=== PATIENT | male | born 1950 | race Caucasian/White ===

== ENCOUNTER 2023-04-06 18:26 | Inpatient (IN) | payer MEDICARE ==
[2023-04-06 19:03] LABS: #Basophils 0.1 10x3/uL (0.0-0.2); #Eosinphils 0.2 10x3/uL (0.0-0.5); #Monocytes 0.9 10x3/uL (0.0-1.1); #Neutrophils 4.7 10x3/uL (1.5-8.4); %Basophils 0.5 % (0.0-2.0); %Eosinophils 1.8 % (0.0-6.0); %Lymphocytes 38.1 % (18.0-47.0); %Monocytes 9.9 % (0.0-10.0); %Neutrophils 49.5 % (40.0-75.0); Hematocrit 45.7 % (38.8-50.0); Hemoglobin 15.6 g/dL (13.5-17.5); Mean Corpuscular HGB CONC 34.1 g/dL (32.0-36.0); Mean Corpuscular Hemoglobin 32.4 pg (27.0-33.0); Mean Corpuscular Volume 94.8 fl (81.2-95.1); Mean Platelet Volume 10.1 fl (7.4-10.4); Platelet Count 281 10x3/uL (150-450); Red Blood Cell (RBC) Count 4.82 10x6/uL (4.32-5.72); White Blood Cell (WBC) Count 9.4 10x3/uL (3.5-10.5)
[2023-04-06] MEDS ORDERED: Aspirin Chewable 81 MG TAB ONE (19:11)
[2023-04-06 19:17] LABS: PTT 32.8 sec (22.0-33.0); Prothrombin Time 11.1 sec (9.5-12.1)
[2023-04-06 19:19] LABS: ALT (SGPT) 25 U/L (8-55); AST (SGOT) 56 U/L (5-34); Albumin 3.9 g/dL (3.4-4.8); Alkaline Phosphatase 63 U/L (40-110); Anion Gap 16 mmol/L (10-20); BUN (Urea Nitrogen) 21 mg/dL (8.4-25.7); CK (CPK) 165 U/L (30-200); Calc. Creatinine Clearance 0 mL/min (70-130); Calcium 9.3 mg/dL (7.8-10.44); Carbon Dioxide 25 mmol/L (23-31); Chloride 101 mmol/L (98-107); Estimated GFR 50; Globulin 3.3 g/dL (2.4-3.5); Glucose 106 mg/dL (83-110); Magnesium 1.8 mg/dL (1.6-2.6); Potassium 4.2 mmol/L (3.5-5.1); Protein, Total 7.2 g/dL (5.8-8.1); Sodium 138 mmol/L (136-145)
[2023-04-06 19:26] LABS: Troponin I 5.823 ng/mL (< 0.028)
[2023-04-06] MEDS ORDERED: Ondansetron PF 4 MG/2 ML Vial IVP PRN (20:00)
[2023-04-06] MEDS ORDERED: Guaifenesin DM 100-10/5 ML UDCUP PO PRN (20:00)
[2023-04-06] MEDS ORDERED: Calcium Carbonate 500 MG ChewTAB PO PRN (20:00)
[2023-04-06] MEDS ORDERED: HYDROcodone/Acetaminophen 5/325 mg Tablet PO PRN (20:00)
[2023-04-06] MEDS ORDERED: Zolpidem Tartrate 5 MG TAB PO PRN (20:00)
[2023-04-06] MEDS ORDERED: Senokot S 8.6-50 MG TAB PO PRN (20:00)
[2023-04-06] MEDS ORDERED: Acetaminophen 325 MG TAB PO PRN (20:00)
[2023-04-06] MEDS ORDERED: Nitroglycerin 0.4 MG TAB (25 Tab Bottle) SL PRN (20:01)
[2023-04-06] MEDS ORDERED: Furosemide 20 MG/2 ML VIAL SLOW IVP SCH (20:15)
[2023-04-06] MEDS ORDERED: Dextrose 50% Abboject 50 ML SYRINGE SLOW IVP PRN (20:19)
[2023-04-06] MEDS ORDERED: HumaLOG 300 UNITS/3 ML VIAL SC PRN (20:19)
[2023-04-06] MEDS ORDERED: Dextrose 5% in Water 1,000 ML IV PRN (20:19)
[2023-04-06] MEDS ORDERED: Glucagon 1 MG/ML KIT IM PRN (20:19)
[2023-04-06] MEDS ORDERED: Furosemide 40 MG/4 ML VIAL ONE (20:26)
[2023-04-06] MEDS ORDERED: Enoxaparin 120 MG/0.8 ML SYRINGE SC SCH (21:00)
[2023-04-06] MEDS ORDERED: Nitroglycerin 2% Ointment 1 INCH/1 GM Packet TOP SCH (21:15)
[2023-04-06] MEDS: Atorvastatin Calcium 40 MG TAB PO SCH (21:58)
[2023-04-06] MEDS: Metoprolol Tartrate 25 MG TAB PO SCH (21:58)
[2023-04-06] MEDS: Famotidine/PF 20 mg/2ml Vial SLOW IVP SCH (21:59)
[2023-04-06 22:07] LABS: Troponin I 5.624 ng/mL (< 0.028)
[2023-04-07 03:43] LABS: #Basophils 0.1 10x3/uL (0.0-0.2); #Eosinphils 0.2 10x3/uL (0.0-0.5); #Monocytes 1.1 10x3/uL (0.0-1.1); #Neutrophils 4.4 10x3/uL (1.5-8.4); %Basophils 0.7 % (0.0-2.0); %Eosinophils 2.4 % (0.0-6.0); %Lymphocytes 31.6 % (18.0-47.0); %Monocytes 12.9 % (0.0-10.0); %Neutrophils 52.2 % (40.0-75.0); Hematocrit 44.5 % (38.8-50.0); Hemoglobin 15.1 g/dL (13.5-17.5); Mean Corpuscular HGB CONC 33.9 g/dL (32.0-36.0); Mean Corpuscular Volume 94.3 fl (81.2-95.1); Mean Platelet Volume 9.9 fl (7.4-10.4); Platelet Count 270 10x3/uL (150-450); RBC Distribution Width 15.1 % (11.5-14.5); Red Blood Cell (RBC) Count 4.72 10x6/uL (4.32-5.72); White Blood Cell (WBC) Count 8.4 10x3/uL (3.5-10.5)
[2023-04-07 03:47] LABS: Anion Gap 16 mmol/L (10-20); BUN (Urea Nitrogen) 23 mg/dL (8.4-25.7); Calc. Creatinine Clearance 63 mL/min (70-130); Calcium 9.4 mg/dL (7.8-10.44); Carbon Dioxide 26 mmol/L (23-31); Cardiac Risk 2.5 (Less than 4.5); Chloride 101 mmol/L (98-107); Cholesterol 106 mg/dl (< 200 Desired); Estimated GFR 46; Glucose 117 mg/dL (83-110); HDL Cholesterol 42 mg/dL (>60 Neg Risk); LDL Cholesterol, Calculated 48 mg/dL; Potassium 3.8 mmol/L (3.5-5.1); Sodium 139 mmol/L (136-145); Triglycerides 80 mg/dL (Less than 150)
[2023-04-07] MEDS ORDERED: Lisinopril 5 MG TAB PO SCH ×2 (09:00→11:00)
[2023-04-07] MEDS: Aspirin 81 mg Enteric Coated Tablet PO SCH (09:27)
[2023-04-07] MEDS: Metoprolol Tartrate 25 MG TAB PO SCH ×2 (09:27→10:43)
[2023-04-07] MEDS: Famotidine/PF 20 mg/2ml Vial SLOW IVP SCH ×2 (09:28→20:44)
[2023-04-07] MEDS ORDERED: Lisinopril 10 MG TAB PO SCH (11:00)
[2023-04-07] MEDS: Enoxaparin 120 MG/0.8 ML SYRINGE SC SCH ×2 (11:50→20:42)
[2023-04-07] MEDS: Furosemide 20 MG/2 ML VIAL SLOW IVP SCH (13:13)
[2023-04-07] MEDS ORDERED: Communication Order-Pharmacy FS SCH (18:30)
[2023-04-07] MEDS: Atorvastatin Calcium 40 MG TAB PO SCH (20:39)
[2023-04-07] MEDS: Sodium Chloride 0.9% 1,000 ML IV SCH (20:42)
[2023-04-08 04:37] LABS: Troponin I 4.967 ng/mL (< 0.028)
[2023-04-08] MEDS: Sodium Chloride 0.9% 1,000 ML IV SCH ×3 (06:14→19:55)
[2023-04-08] MEDS ORDERED: Hydrochlorothiazide 25 MG TAB PO SCH (09:00)
[2023-04-08] MEDS: CO Q-10 CAPSULE 50 MG PO SCH (09:00)
[2023-04-08] MEDS ORDERED: PRASTERONE 50 MG PO SCH (09:00)
[2023-04-08] MEDS ORDERED: TICAGRELOR 90 MG TABLET PO SCH (09:02)
[2023-04-08] MEDS: Allopurinol 300 MG TAB PO SCH (09:04)
[2023-04-08] MEDS: Famotidine/PF 20 mg/2ml Vial SLOW IVP SCH ×2 (09:04→22:25)
[2023-04-08] MEDS: Multivitamin W/ Minerals 1 TAB PO SCH (09:06)
[2023-04-08] MEDS: Gemfibrozil 600 MG TAB PO SCH (09:06)
[2023-04-08] MEDS: Tamsulosin HCl 0.4 MG CAP PO SCH (09:06)
[2023-04-08] MEDS: Cholecalciferol 1,000 UNITS (25 MCG) TAB PO SCH (09:07)
[2023-04-08] MEDS: Anastrozole 1 MG TAB PO SCH (09:07)
[2023-04-08] MEDS: Loratadine 10 MG TAB PO SCH (09:12)
[2023-04-08] MEDS: Lisinopril 10 MG TAB PO SCH (09:13)
[2023-04-08] MEDS: Furosemide 20 MG/2 ML VIAL SLOW IVP SCH (09:23)
[2023-04-08] MEDS: Pioglitazone HCl 15 MG TAB PO SCH (09:25)
[2023-04-08] MEDS: Aspirin 81 mg Enteric Coated Tablet PO SCH (09:25)
[2023-04-08] MEDS ORDERED: Acetylcysteine 800 MG/4 ML VIAL PO SCH (11:30)
[2023-04-08] MEDS ORDERED: Iopamidol 300 61% 100 ML VIAL FS ONE (12:34)
[2023-04-08] MEDS ORDERED: Nitroglycerin 50 MG/250 ML BOT 250 ML ONE (13:07)
[2023-04-08] MEDS ORDERED: Lidocaine 1% (PF) 30 ML VIAL ONE (13:07)
[2023-04-08] MEDS ORDERED: Heparin 10,000 UNITS/ 10 ML VIAL ONE ×2 (13:08→14:53)
[2023-04-08] MEDS ORDERED: Adenosine 6 MG/2 ML VIAL ONE (13:08)
[2023-04-08] MEDS ORDERED: fentaNYL 50 mcg/mL 1 mL Vial ONE (13:08)
[2023-04-08] MEDS ORDERED: Midazolam HCl 2 mg/2 ml Vial ONE ×3 (13:08→16:46)
[2023-04-08] MEDS ORDERED: PHENYLEPHRINE-NS 100 MCG/ML 10 ML SYRINGE ONE (13:59)
[2023-04-08] MEDS ORDERED: Atropine Sulfate 1 mg/1 ml Vial ONE ×2 (13:59→14:53)
[2023-04-08] MEDS ORDERED: Ondansetron PF 4 MG/2 ML Vial ONE (15:30)
[2023-04-08] MEDS ORDERED: Morphine 2 MG/ML VIAL SLOW IVP PRN (17:52)
[2023-04-08] MEDS ORDERED: Mag-Al 1200 mg/1200 mg/30 ML UDCUP PO PRN (17:52)
[2023-04-08] MEDS ORDERED: traMADol HCl 50 MG TAB PO PRN (17:52)
[2023-04-08] MEDS ORDERED: Zolpidem Tartrate 5 MG TAB PO PRN (17:52)
[2023-04-08] MEDS ORDERED: Milk Of Magnesia 30 ML UDCUP PO PRN (17:52)
[2023-04-08] MEDS ORDERED: ADMIXTURE FEE FS SCH ×2 (19:45→20:00)
[2023-04-08] MEDS ORDERED: [UNRECOGNIZED DRUG - OTHER] FS SCH (19:45)
[2023-04-08] MEDS ORDERED: Sodium Chloride 0.9% 500 ML IV SCH (19:45)
[2023-04-08] MEDS ORDERED: DEXTROSE FS SCH ×2 (19:45→20:00)
[2023-04-08] MEDS ORDERED: Heparin 10,000 UNITS/ 10 ML VIAL SLOW IVP SCH (19:45)
[2023-04-08] MEDS ORDERED: Heparin 25,000 units/D5W 500 ML IV SCH (19:45)
[2023-04-08] MEDS ORDERED: HEPARIN FS SCH ×2 (19:45→20:00)
[2023-04-08] MEDS ORDERED: WATER FS SCH (20:00)
[2023-04-08 20:37] LABS: #Monocytes 1.4 10x3/uL (0.0-1.1); #Neutrophils 8.9 10x3/uL (1.5-8.4); %Basophils 0.3 % (0.0-2.0); %Eosinophils 0.3 % (0.0-6.0); %Monocytes 11.8 % (0.0-10.0); %Neutrophils 76.2 % (40.0-75.0); Hematocrit 43.8 % (38.8-50.0); Hemoglobin 15.1 g/dL (13.5-17.5); Mean Corpuscular HGB CONC 34.5 g/dL (32.0-36.0); Mean Corpuscular Hemoglobin 32.7 pg (27.0-33.0); Mean Corpuscular Volume 94.8 fl (81.2-95.1); Mean Platelet Volume 10.2 fl (7.4-10.4); Platelet Count 258 10x3/uL (150-450); RBC Distribution Width 14.6 % (11.5-14.5); Red Blood Cell (RBC) Count 4.62 10x6/uL (4.32-5.72); White Blood Cell (WBC) Count 11.7 10x3/uL (3.5-10.5)
[2023-04-08] MEDS ORDERED: Protamine Sulfate 250 MG/25 ML VIAL ONE (21:03)
[2023-04-08] MEDS ORDERED: Atropine Sulfate 1 mg/10 ml Syringe ONE (21:10)
[2023-04-08] MEDS ORDERED: Protamine Sulfate 50 MG/5 ML VIAL SLOW IVP SCH (21:15)
[2023-04-08] MEDS ORDERED: TICAGRELOR 90 MG TABLET ONE (22:23)
[2023-04-08] MEDS: TICAGRELOR 90 MG TABLET PO SCH (22:25)
[2023-04-08] MEDS: Atorvastatin Calcium 40 MG TAB PO SCH (22:26)
[2023-04-08] MEDS ORDERED: Sodium Chloride 0.9% 500 ML IVPB SCH (22:30)
[2023-04-08 22:57] LABS: INR-International Normal Ratio 1.1; PTT 30.9 sec (22.0-33.0); Prothrombin Time 11.8 sec (9.5-12.1)
[2023-04-08 23:04] LABS: ALT (SGPT) 27 U/L (8-55); AST (SGOT) 115 U/L (5-34); Albumin 3.1 g/dL (3.4-4.8); Alkaline Phosphatase 46 U/L (40-110); Anion Gap 16 mmol/L (10-20); BUN (Urea Nitrogen) 24 mg/dL (8.4-25.7); Bilirubin, Total 1.7 mg/dL (0.2-1.2); Calc. Creatinine Clearance 65 mL/min (70-130); Calcium 8.3 mg/dL (7.8-10.44); Carbon Dioxide 22 mmol/L (23-31); Chloride 101 mmol/L (98-107); Estimated GFR 47; Glucose 169 mg/dL (83-110); Magnesium 1.7 mg/dL (1.6-2.6); Potassium 4.2 mmol/L (3.5-5.1); Protein, Total 7.1 g/dL (5.8-8.1); Sodium 135 mmol/L (136-145)
[2023-04-09] MEDS: Sodium Chloride 0.9% 1,000 ML IV SCH ×4 (01:05→15:13)
[2023-04-09 05:46] LABS: Hemoglobin 13.3 g/dL (13.5-17.5); Red Blood Cell (RBC) Count 4.12 10x6/uL (4.32-5.72); White Blood Cell (WBC) Count 8.4 10x3/uL (3.5-10.5)
[2023-04-09 05:47] LABS: #Neutrophils 5.8 10x3/uL (1.5-8.4); %Basophils 0.6 % (0.0-2.0); %Eosinophils 0.6 % (0.0-6.0); %Lymphocytes 16.1 % (18.0-47.0); %Monocytes 13.3 % (0.0-10.0); Hematocrit 38.7 % (38.8-50.0); Mean Corpuscular HGB CONC 34.4 g/dL (32.0-36.0); Mean Corpuscular Hemoglobin 32.3 pg (27.0-33.0); Mean Corpuscular Volume 93.9 fl (81.2-95.1); Mean Platelet Volume 9.9 fl (7.4-10.4); Platelet Count 249 10x3/uL (130-400); RBC Distribution Width 14.6 % (11.5-14.5)
[2023-04-09 05:48] LABS: #Basophils 0.1 10x3/uL (0.0-0.2); #Eosinphils 0.1 10x3/uL (0.0-0.5); #Monocytes 1.1 10x3/uL (0.0-1.1)
[2023-04-09 07:14] LABS: ALT (SGPT) 26 U/L (8-55); Albumin 2.9 g/dL (3.4-4.8); Alkaline Phosphatase 47 U/L (40-110); Anion Gap 14 mmol/L (10-20); BUN (Urea Nitrogen) 27 mg/dL (8.4-25.7); Bilirubin, Total 1.8 mg/dL (0.2-1.2); Calc. Creatinine Clearance 63 mL/min (70-130); Calcium 8.5 mg/dL (7.8-10.44); Carbon Dioxide 22 mmol/L (23-31); Chloride 104 mmol/L (98-107); Estimated GFR 49; Globulin 3.3 g/dL (2.4-3.5); Glucose 119 mg/dL (83-110); Potassium 4.1 mmol/L (3.5-5.1); Protein, Total 6.2 g/dL (5.8-8.1); Sodium 136 mmol/L (136-145)
[2023-04-09 07:21] LABS: AST (SGOT) 107 U/L (5-34)
[2023-04-09] MEDS: Furosemide 20 MG/2 ML VIAL SLOW IVP SCH (08:56)
[2023-04-09] MEDS: Tamsulosin HCl 0.4 MG CAP PO SCH (08:57)
[2023-04-09] MEDS: Multivitamin W/ Minerals 1 TAB PO SCH (08:57)
[2023-04-09] MEDS: Aspirin 81 mg Enteric Coated Tablet PO SCH (08:57)
[2023-04-09] MEDS: Loratadine 10 MG TAB PO SCH (08:57)
[2023-04-09] MEDS: Carvedilol 6.25 MG TAB PO SCH ×2 (08:57→16:51)
[2023-04-09] MEDS: CO Q-10 CAPSULE 50 MG PO SCH (08:57)
[2023-04-09] MEDS: Cholecalciferol 1,000 UNITS (25 MCG) TAB PO SCH (08:57)
[2023-04-09] MEDS ORDERED: Aspirin Chewable 81 MG TAB PO SCH (09:00)
[2023-04-09] MEDS: TICAGRELOR 90 MG TABLET PO SCH ×2 (09:00→21:07)
[2023-04-09] MEDS: Allopurinol 300 MG TAB PO SCH (09:13)
[2023-04-09] MEDS: Gemfibrozil 600 MG TAB PO SCH (09:13)
[2023-04-09] MEDS: Pioglitazone HCl 15 MG TAB PO SCH (09:13)
[2023-04-09] MEDS: Anastrozole 1 MG TAB PO SCH (09:14)
[2023-04-09] MEDS: Lisinopril 10 MG TAB PO SCH (11:03)
[2023-04-09] MEDS: CEFAZOLIN 1 GM in Sodium Chloride 0.9% 100 ML IVPB SCH ×2 (15:13→21:07)
[2023-04-09] MEDS: Atorvastatin Calcium 40 MG TAB PO SCH (21:07)
[2023-04-10] MEDS: CEFAZOLIN 1 GM in Sodium Chloride 0.9% 100 ML IVPB SCH (05:02)
[2023-04-10 05:14] VITALS: TEMP 98.2
[2023-04-10] MEDS: Carvedilol 6.25 MG TAB PO SCH (08:29)
[2023-04-10] MEDS: Allopurinol 300 MG TAB PO SCH (08:30)
[2023-04-10] MEDS: Anastrozole 1 MG TAB PO SCH (08:30)
[2023-04-10] MEDS: Aspirin 81 mg Enteric Coated Tablet PO SCH (08:34)
[2023-04-10] MEDS: Cholecalciferol 1,000 UNITS (25 MCG) TAB PO SCH (08:35)
[2023-04-10] MEDS: Gemfibrozil 600 MG TAB PO SCH (08:36)
[2023-04-10] MEDS: Loratadine 10 MG TAB PO SCH (08:37)
[2023-04-10] MEDS: Multivitamin W/ Minerals 1 TAB PO SCH (08:38)
[2023-04-10] MEDS: Pioglitazone HCl 15 MG TAB PO SCH (08:39)
[2023-04-10] MEDS: CO Q-10 CAPSULE 50 MG PO SCH (08:40)
[2023-04-10] MEDS: Tamsulosin HCl 0.4 MG CAP PO SCH (08:40)
[2023-04-10] MEDS: TICAGRELOR 90 MG TABLET PO SCH (08:40)
[2023-04-10] MEDS ORDERED: Lisinopril 5 MG TAB PO SCH (09:00)
[2023-04-10 11:08] VITALS: BMI 32.2
[2023-04-10 14:58] VITALS: BP 109/53
== END 2023-04-10 16:03 | disposition home or self-care (01) | DRG 215 ==
LOC: CSHERS 18:26 → CSHTELE 20:01 → OBSVTOIN 20:02 → CSHIMCU 04-08 18:11
PROVIDERS: ADMIT Student in an Organized Health Care Education/Training Program; ATTEND Internal Medicine
PROC: 02HA3RZ Insertion of Short-term External Heart Assist System into Heart, Percutaneous Approach (ICD-10-PCS; principal; 2023-04-08)
PROC: 5A0221D Assistance with Cardiac Output using Impeller Pump, Continuous (ICD-10-PCS; 2023-04-08)
PROC: 027035Z Dilation of Coronary Artery, One Artery with Two Drug-eluting Intraluminal Devices, Percutaneous Approach (ICD-10-PCS; 2023-04-08)
PROC: 02713ZZ Dilation of Coronary Artery, Two Arteries, Percutaneous Approach (ICD-10-PCS; 2023-04-08)
PROC: 4A023N7 Measurement of Cardiac Sampling and Pressure, Left Heart, Percutaneous Approach (ICD-10-PCS; 2023-04-08)
PROC: B2111ZZ Fluoroscopy of Multiple Coronary Arteries using Low Osmolar Contrast (ICD-10-PCS; 2023-04-08)
PROC: B2151ZZ Fluoroscopy of Left Heart using Low Osmolar Contrast (ICD-10-PCS; 2023-04-08)
PROC: 02WAXRZ Revision of Short-term External Heart Assist System in Heart, External Approach (ICD-10-PCS; 2023-04-08)
PROC: 02PA3RZ Removal of Short-term External Heart Assist System from Heart, Percutaneous Approach (ICD-10-PCS; 2023-04-08)
PROC: 02HV33Z Insertion of Infusion Device into Superior Vena Cava, Percutaneous Approach (ICD-10-PCS; 2023-04-08)
DX: I21.4 Non-ST elevation (NSTEMI) myocardial infarction (principal); I50.31 Acute diastolic (congestive) heart failure; I13.0 Hypertensive heart and chronic kidney disease with heart failure and stage 1 through stage 4 chronic kidney disease, or unspecified chronic kidney disease; I25.10 Atherosclerotic heart disease of native coronary artery without angina pectoris; E78.5 Hyperlipidemia, unspecified; I48.0 Paroxysmal atrial fibrillation; E11.22 Type 2 diabetes mellitus with diabetic chronic kidney disease; I25.2 Old myocardial infarction; Z95.1 Presence of aortocoronary bypass graft; Z98.890 Other specified postprocedural states; Z88.5 Allergy status to narcotic agent; Z95.5 Presence of coronary angioplasty implant and graft
CPT/HCPCS: 0715T; 33990; 36415; 36416; 71045; 80048; 80053; 80061; 82550; 83735; 83880; 84484; 85025; 85347; 85610; 85730; 92921; 92928; 92929; 92978; 92979; 93005; 93010; 93306; 93459; 96372; 96374; 99152; 99153; C1725; C1753; C1760; C1761; C1769; C1874; C1887; C9600; C9601; G0278; J0153; J0461; J0690; J1644; J1650; J1815; J1940; J2001; J2250; J2405; J2720; J3010; J3490; J7030; J7050; Q9967; S0028

== ENCOUNTER 2023-08-20 14:13 | Outpatient (CLI) | payer MEDICARE ==
[~2023-08-20 14:13] MED LIST: Magnevist 469MG/ML 20 ML VIAL ONE
== END 2023-08-20 14:14 | disposition home or self-care (01) ==
LOC: CSHMRI 14:13
PROVIDERS: ATTEND Urology
DX: R97.20 Elevated prostate specific antigen [PSA] (principal)
CPT/HCPCS: 72197; A9579

== ENCOUNTER 2024-07-29 10:51 | Outpatient (CLI) | payer MEDICARE | END 2024-07-29 10:52 | disposition home or self-care (01) | LOC: CSHRAD 10:51 | PROVIDERS: ATTEND Internal Medicine | DX: R06.02 Shortness of breath (principal); R05.1 Acute cough | CPT/HCPCS: 71046 ==

== ENCOUNTER 2025-05-01 10:06 | Inpatient (IN) | payer MEDICARE ==
[2025-05-01 11:03] LABS: #Basophils 0.05 10x3/uL (0.0-0.2); #Eosinophils 0.04 10x3/uL (0.0-0.5); #Monocytes 0.94 10x3/uL (0.0-1.1); #Neutrophils 17.18 10x3/uL (1.5-8.4); %Basophils 0.3 % (0.0-2.0); %Eosinophils 0.2 % (0.0-6.0); %Lymphocytes 7.2 % (18.0-47.0); %Monocytes 4.7 % (0.0-10.0); %Neutrophils 86.6 % (40.0-75.0); Hematocrit 46.0 % (38.8-50.0); Hemoglobin 15.5 g/dL (13.5-17.5); Mean Corpuscular Hemoglobin 31.8 pg (27.0-33.0); Mean Corpuscular Volume 94.5 fL (81.2-95.1); Platelet Count 198 10x3/uL (150-450); Red Blood Cell (RBC) Count 4.87 10x6/uL (4.32-5.72); White Blood Cell (WBC) Count 19.83 10x3/uL (3.5-10.5)
[2025-05-01] MEDS ORDERED: cefTRIAXone (ROCEPHIN) 2 GM VIAL ONE (11:03)
[2025-05-01 11:18] LABS: ALT (SGPT) 20 U/L (Less than 45); AST (SGOT) 38 U/L (11-34); Albumin 3.2 g/dL (3.1-4.5); Alkaline Phosphatase 52 U/L (40-110); Anion Gap 19 mmol/L (10-20); BUN (Urea Nitrogen) 44 mg/dL (8.4-25.7); Bilirubin, Total 1.0 mg/dL (0.3-1.2); Calc. Creatinine Clearance 0 mL/min (70-130); Calcium 8.8 mg/dL (7.8-10.44); Carbon Dioxide 19 mmol/L (23-31); Chloride 96 mmol/L (98-107); Globulin 3.7 g/dL (2.4-3.5); Glucose 123 mg/dL (83-110); Potassium 4.7 mmol/L (3.5-5.1); Sodium 129 mmol/L (136-145)
[2025-05-01 11:24] LABS: Troponin I 0.026 ng/mL (< 0.028)
[2025-05-01] MEDS ORDERED: Melatonin 3 MG TAB PO PRN (12:08)
[2025-05-01] MEDS ORDERED: Calcium Carbonate 500 MG ChewTAB PO PRN (12:08)
[2025-05-01] MEDS ORDERED: Ondansetron PF 4 MG/2 ML Vial IVP PRN (12:08)
[2025-05-01] MEDS ORDERED: Senokot S 8.6-50 MG TAB PO PRN (12:08)
[2025-05-01] MEDS ORDERED: Bisacodyl 10 MG SUPP PR PRN (12:08)
[2025-05-01 12:40] LABS: Glucose, Urine (Dipstick) 250 mg/dL (Negative); Leukocyte Negative (Negative); Protein, Urine (Dipstick) 30 mg/dl (Neg-Trace); Specific Gravity, Urine 1.015 (1.005-1.030)
[2025-05-01] MEDS ORDERED: Dextrose 50% Abboject 50 ML SYRINGE SLOW IVP PRN (12:46)
[2025-05-01] MEDS ORDERED: Glucagon 1 MG/ML KIT IM PRN (12:46)
[2025-05-01 12:56] LABS: CAUTI Indications for Culture Alt mental st,lethar; RBC/HPF 0-3 HPF (0-3)
[2025-05-01 12:58] LABS: Bacteria/HPF Rare-Few HPF (None Seen)
[2025-05-01 13:00] LABS: Urine Culture Reflex Yes Yes
[2025-05-01] MEDS ORDERED: Cefepime 2 GM VIAL ONE (15:03)
[2025-05-01] MEDS: Linezolid 600 MG in Premix 1 BAG IVPB SCH (15:51)
[2025-05-01 18:23] VITALS: BMI 34.5
[2025-05-01] MEDS: Acetaminophen 325 MG TAB PO PRN (19:50)
[2025-05-01] MEDS: Apixaban 5 MG TAB PO SCH (20:56)
[2025-05-02] MEDS ORDERED: Linezolid 600 MG in Premix 1 BAG IVPB SCH (02:00)
[2025-05-02 05:05] LABS: #Basophils 0.05 10x3/uL (0.0-0.2); #Eosinophils 0.03 10x3/uL (0.0-0.5); #Monocytes 0.80 10x3/uL (0.0-1.1); #Neutrophils 11.55 10x3/uL (1.5-8.4); %Basophils 0.4 % (0.0-2.0); %Eosinophils 0.2 % (0.0-6.0); %Lymphocytes 8.2 % (18.0-47.0); %Monocytes 5.9 % (0.0-10.0); %Neutrophils 85.0 % (40.0-75.0); Hematocrit 45.3 % (38.8-50.0); Hemoglobin 15.1 g/dL (13.5-17.5); Mean Corpuscular Hemoglobin 31.5 pg (27.0-33.0); Mean Corpuscular Volume 94.4 fL (81.2-95.1); Platelet Count 191 10x3/uL (150-450); Red Blood Cell (RBC) Count 4.80 10x6/uL (4.32-5.72); White Blood Cell (WBC) Count 13.58 10x3/uL (3.5-10.5)
[2025-05-02 05:20] LABS: Anion Gap 14 mmol/L (10-20); BUN (Urea Nitrogen) 35 mg/dL (8.4-25.7); Calc. Creatinine Clearance 55 mL/min (70-130); Calcium 9.4 mg/dL (7.8-10.44); Carbon Dioxide 22 mmol/L (23-31); Chloride 104 mmol/L (98-107); Glucose 96 mg/dL (83-110); Potassium 4.2 mmol/L (3.5-5.1); Sodium 136 mmol/L (136-145)
[2025-05-02] MEDS: Aspirin 81 mg Enteric Coated Tablet PO SCH (08:56)
[2025-05-02] MEDS: VANCOMYCIN 2 GRAM/400 ML BAG 2 GM in Premix 1 BAG IVPB SCH (11:51)
[2025-05-02] MEDS: Carvedilol 12.5 MG TAB PO SCH (20:18)
[2025-05-03 05:54] LABS: #Basophils 0.04 10x3/uL (0.0-0.2); #Eosinophils 0.17 10x3/uL (0.0-0.5); #Monocytes 0.78 10x3/uL (0.0-1.1); #Neutrophils 6.49 10x3/uL (1.5-8.4); %Basophils 0.4 % (0.0-2.0); %Eosinophils 1.9 % (0.0-6.0); %Lymphocytes 17.7 % (18.0-47.0); %Monocytes 8.5 % (0.0-10.0); %Neutrophils 71.0 % (40.0-75.0); Hematocrit 45.6 % (38.8-50.0); Hemoglobin 15.4 g/dL (13.5-17.5); Mean Corpuscular Hemoglobin 32.3 pg (27.0-33.0); Mean Corpuscular Volume 95.6 fL (81.2-95.1); Platelet Count 203 10x3/uL (150-450); Red Blood Cell (RBC) Count 4.77 10x6/uL (4.32-5.72); White Blood Cell (WBC) Count 9.15 10x3/uL (3.5-10.5)
[2025-05-03 06:09] LABS: Anion Gap 14 mmol/L (10-20); BUN (Urea Nitrogen) 22 mg/dL (8.4-25.7); Calc. Creatinine Clearance 75 mL/min (70-130); Calcium 9.8 mg/dL (7.8-10.44); Carbon Dioxide 23 mmol/L (23-31); Chloride 102 mmol/L (98-107); Glucose 94 mg/dL (83-110); Potassium 4.2 mmol/L (3.5-5.1); Sodium 135 mmol/L (136-145)
[2025-05-03] MEDS ORDERED: VANCOMYCIN 1.25 GM/250 ML BAG 1.25 GM in Premix 1 BAG IVPB SCH (09:00)
[2025-05-03] MEDS: Pantoprazole 40 MG DR.TAB PO SCH (09:46)
[2025-05-03] MEDS: Allopurinol 300 MG TAB PO SCH (09:47)
[2025-05-03] MEDS: Lantus 1000 UNITS/10 ML VIAL SC SCH (19:50)
[2025-05-04 06:32] LABS: #Basophils 0.05 10x3/uL (0.0-0.2); #Eosinophils 0.32 10x3/uL (0.0-0.5); #Monocytes 0.79 10x3/uL (0.0-1.1); #Neutrophils 4.96 10x3/uL (1.5-8.4); %Basophils 0.6 % (0.0-2.0); %Eosinophils 4.0 % (0.0-6.0); %Lymphocytes 23.0 % (18.0-47.0); %Monocytes 9.9 % (0.0-10.0); %Neutrophils 62.0 % (40.0-75.0); Hematocrit 46.7 % (38.8-50.0); Hemoglobin 15.7 g/dL (13.5-17.5); Mean Corpuscular Hemoglobin 32.0 pg (27.0-33.0); Mean Corpuscular Volume 95.1 fL (81.2-95.1); Platelet Count 216 10x3/uL (150-450); Red Blood Cell (RBC) Count 4.91 10x6/uL (4.32-5.72); White Blood Cell (WBC) Count 8.00 10x3/uL (3.5-10.5)
[2025-05-04 06:50] LABS: ALT (SGPT) 18 U/L (Less than 45); AST (SGOT) 44 U/L (11-34); Albumin 3.1 g/dL (3.1-4.5); Alkaline Phosphatase 64 U/L (40-110); Anion Gap 14 mmol/L (10-20); BUN (Urea Nitrogen) 21 mg/dL (8.4-25.7); Bilirubin, Total 0.6 mg/dL (0.3-1.2); Calc. Creatinine Clearance 80 mL/min (70-130); Calcium 9.8 mg/dL (7.8-10.44); Carbon Dioxide 24 mmol/L (23-31); Chloride 101 mmol/L (98-107); Globulin 4.3 g/dL (2.4-3.5); Glucose 125 mg/dL (83-110); Potassium 3.9 mmol/L (3.5-5.1); Sodium 135 mmol/L (136-145)
[2025-05-05 05:00] LABS: #Basophils 0.05 10x3/uL (0.0-0.2); #Eosinophils 0.37 10x3/uL (0.0-0.5); #Monocytes 0.87 10x3/uL (0.0-1.1); #Neutrophils 5.17 10x3/uL (1.5-8.4); %Basophils 0.6 % (0.0-2.0); %Eosinophils 4.3 % (0.0-6.0); %Lymphocytes 24.9 % (18.0-47.0); %Monocytes 10.0 % (0.0-10.0); %Neutrophils 59.5 % (40.0-75.0); Hematocrit 46.2 % (38.8-50.0); Hemoglobin 15.6 g/dL (13.5-17.5); Mean Corpuscular Hemoglobin 32.2 pg (27.0-33.0); Mean Corpuscular Volume 95.3 fL (81.2-95.1); Platelet Count 222 10x3/uL (150-450); Red Blood Cell (RBC) Count 4.85 10x6/uL (4.32-5.72); White Blood Cell (WBC) Count 8.68 10x3/uL (3.5-10.5)
[2025-05-05 05:14] LABS: ALT (SGPT) 14 U/L (Less than 45); AST (SGOT) 40 U/L (11-34); Albumin 3.0 g/dL (3.1-4.5); Alkaline Phosphatase 66 U/L (40-110); Anion Gap 16 mmol/L (10-20); BUN (Urea Nitrogen) 23 mg/dL (8.4-25.7); Bilirubin, Total 0.6 mg/dL (0.3-1.2); Calc. Creatinine Clearance 79 mL/min (70-130); Calcium 9.5 mg/dL (7.8-10.44); Carbon Dioxide 23 mmol/L (23-31); Chloride 102 mmol/L (98-107); Globulin 4.1 g/dL (2.4-3.5); Glucose 145 mg/dL (83-110); Potassium 4.0 mmol/L (3.5-5.1); Sodium 137 mmol/L (136-145)
[2025-05-05] MEDS: cefTRIAXone\\ROCEPHIN 2 GM in Sodium Chloride 0.9% 100 ML IVPB SCH (09:10)
[2025-05-05 14:40] VITALS: BP 135/86; TEMP 97.7
== END 2025-05-05 15:13 | disposition home or self-care (01) | DRG 871 ==
LOC: CSHERS 10:06 → CSHERHOLD 12:05 → CSHTELE 17:36
PROVIDERS: ADMIT Internal Medicine; ATTEND Internal Medicine
DX: A40.1 Sepsis due to streptococcus, group B (principal); G92.8 Other toxic encephalopathy; I50.22 Chronic systolic (congestive) heart failure; L03.116 Cellulitis of left lower limb; N17.9 Acute kidney failure, unspecified; E87.1 Hypo-osmolality and hyponatremia; I13.0 Hypertensive heart and chronic kidney disease with heart failure and stage 1 through stage 4 chronic kidney disease, or unspecified chronic kidney disease; E11.9 Type 2 diabetes mellitus without complications; R65.20 Severe sepsis without septic shock; I25.10 Atherosclerotic heart disease of native coronary artery without angina pectoris; N18.31 Chronic kidney disease, stage 3a; K21.9 Gastro-esophageal reflux disease without esophagitis; N40.0 Benign prostatic hyperplasia without lower urinary tract symptoms; Z95.1 Presence of aortocoronary bypass graft; Z88.5 Allergy status to narcotic agent; Z79.899 Other long term (current) drug therapy; I25.2 Old myocardial infarction; I48.0 Paroxysmal atrial fibrillation; Z82.49 Family history of ischemic heart disease and other diseases of the circulatory system; Z79.4 Long term (current) use of insulin; E78.5 Hyperlipidemia, unspecified; I95.9 Hypotension, unspecified; Z79.84 Long term (current) use of oral hypoglycemic drugs; Z79.82 Long term (current) use of aspirin
CPT/HCPCS: 36415; 36416; 51798; 76770; 80048; 80053; 81001; 83036; 83605; 83880; 84484; 85025; 87040; 87077; 87081; 87086; 87149; 87186; 87400; 93005; 94760; 96361; 96365; J0692; J0696; J1815; J2020; J3375; J7120